=== PATIENT | male | born 1985 | race Caucasian/White ===

== ENCOUNTER 2023-05-27 07:41 | Emergency (ER) | payer SELFPAY ==
[2023-05-27 08:00] VITALS: BP 127/84; PULSE 91; RESP 20; TEMP 98; BMI 28.5
== END 2023-05-27 17:27 | disposition home or self-care (01) ==
LOC: JER 07:41
PROC: 0HQ1XZZ Repair Face Skin, External Approach (ICD-10-PCS; principal; 2023-05-27)
DX: S01.111A Laceration without foreign body of right eyelid and periocular area, initial encounter (principal); H02.843 Edema of right eye, unspecified eyelid; S09.90XA Unspecified injury of head, initial encounter; V18.0XXA Pedal cycle driver injured in noncollision transport accident in nontraffic accident, initial encounter; Y92.410 Unspecified street and highway as the place of occurrence of the external cause
CPT/HCPCS: 70150-TC-FY; 70450-TC; 70486-TC; 72125-TC; 73110-TC-LT-FY; 73130-TC-LT-FY; 99284-25